=== PATIENT | male | born 1995 | race Caucasian/White ===

== ENCOUNTER 2019-04-19 09:18 | Emergency (ER) | payer OTHER ==
[~2019-04-19] VITALS: Ht 188 cm; Wt 91.0 kg
[2019-04-19] MEDS ORDERED: ONDANSETRON PF 4 MG/2 ML VIAL. ONE (09:37)
[2019-04-19] MEDS ORDERED: IV NORMAL SALINE 1,000ML 1,000 ML IV ONE (09:45)
[2019-04-19] MEDS ORDERED: ONDANSETRON PF 4 MG/2 ML VIAL. IVP ONE (09:45)
[2019-04-19] MEDS ORDERED: KETOROLAC 15 MG/ML VIAL. IVP ONE (10:00)
[2019-04-19] MEDS ORDERED: FAMOTIDINE 20 MG/2 ML VIAL IVP ONE (10:00)
[2019-04-19 10:02] LABS: BASO % 1 % (0-3); EOS # 0.1 x10^3/uL (0.0-0.7); EOS % 2 % (0-3); HEMATOCRIT 46.4 % (39.0-53.0); HEMOGLOBIN 16.2 g/dL (13.0-17.5); LYMPH # 1.8 x10^3/uL (1.0-4.8); LYMPH % 30 % (24-48); MEAN CORPUSCULAR HEMOGLOBIN 31 pg (25-35); MEAN CORPUSCULAR HGB CONC 35 g/dL (31-37); MEAN CORPUSCULAR VOLUME 88 fL (79-100); MONO # 0.6 x10^3/uL (0.0-1.1); MONO % 10 % (0-9); NEUT # 3.3 x10^3uL (1.8-7.7); NEUT % 57 % (31-73); PLATELET COUNT 172 x10^3/uL (140-400); RED BLOOD COUNT 5.24 x10^6/uL (4.30-5.70); RED CELL DISTRIBUTION WIDTH 12.7 % (11.5-14.5); WHITE BLOOD COUNT 5.9 x10^3/uL (4.0-11.0)
[2019-04-19 10:12] LABS: CALCIUM 9.6 mg/dL (8.5-10.1); CREATININE 1.5 mg/dL (0.7-1.3); GFR 57.5; POTASSIUM 3.6 mmol/L (3.5-5.1)
[2019-04-19 10:13] VITALS: BP 153/97
[2019-04-19 10:18] LABS: ALBUMIN 4.6 g/dL (3.4-5.0); ALBUMIN/GLOBULIN RATIO 1.4 (1.0-1.7); MAGNESIUM 1.9 mg/dL (1.8-2.4); TOTAL BILIRUBIN 0.5 mg/dL (0.2-1.0); TOTAL PROTEIN 7.8 g/dL (6.4-8.2)
--- NOTE | 2019-04-19 10:44 | RAD ---
PQRS Compliance Statement: One or more of the following individualized dose reduction techniques were utilized for this examination: 1. Automated exposure control 2. Adjustment of the mA and/or kV according to patient size 3. Use of iterative reconstruction technique CT abdomen/pelvis without contrast 04/19/2019 9:47 AM INDICATION: Left flank pain COMPARISON: None available TECHNIQUE: Multiple axial CT images of the abdomen and pelvis were obtained without intravenous contrast. Coronal and sagittal reformats are provided. FINDINGS: Visualized portions of the lung bases are clear. Heart size is within normal limits. Evaluation of the solid abdominal viscera is limited by lack of intravenous contrast. No suspicious hepatic masses are identified. Spleen, bilateral adrenal glands, and pancreas are normal in appearance. Gallbladder is present without adjacent inflammatory changes. The abdominal aorta is normal in course and caliber. There are no pathologically enlarged lymph nodes in the abdomen and pelvis. There is no abdominal free fluid. There is no free intraperitoneal air. Small and large bowel are normal in caliber. There is no evidence for bowel obstruction. There are no pericolonic inflammatory changes. A normal, nondilated appendix is visualized without adjacent inflammatory changes. There is a small fat-containing umbilical hernia measuring 1.6 cm. Urinary bladder is within normal limits given degree of distention. Prostate and seminal vesicles are normal. There is a 4 mm calculus at the left ureterovesicular junction resulting in mild left hydroureteronephrosis. Additional 1 mm nonobstructing calculus is identified in the interpolar left kidney. There is suggestion of a cystic lesion in the superior pole left kidney measuring 16 mm. There are at least 3 nonobstructing calculi in the right kidney measuring up to 5 mm in inferior pole the right kidney. No suspicious osseous abnormality is identified. IMPRESSION: 1. 4 mm calculus is identified in the left ureterovesicular junction resulting in mild left hydroureteronephrosis. 2. Additional bilateral nonobstructing calculi are identified measuring up to 5 mm in inferior pole the right kidney. 3. Presumed simple cyst in the superior pole of left kidney measuring 1.6 cm. This may be confirmed with renal ultrasound on nonemergent basis. 4. Small fat-containing umbilical hernia. Electronically signed by: Anna Kennedy MD (04/19/2019 10:41 AM) [id number]
[2019-04-19] MEDS ORDERED: TAMS0.4C97 PO (11:05)
[2019-04-19] MEDS ORDERED: ONDA4TAB12 PO (11:05)
[2019-04-19] MEDS ORDERED: HYDR-3165 PO (11:06)
--- NOTE | 2019-04-19 11:06 | PHYS DOC ---
Past History Past Medical History: No Pertinent History Additional Past Medical Histor: No family or personal history of Kidney stones. Past Surgical History: Other Additional Past Surgical Histo: bilateral ACL repairs Smoking: Non-smoker Alcohol Use: Rarely Drug Use: None Adult General Chief Complaint Chief Complaint: ABDOMINAL PAIN HPI HPI Patient is a 23 year old male who presents with abdominal pain of 1 day duration. Pain initially started at 8:30 a.m. Thursday morning after eating breakfast. Pain is described as sharp L flank pain that radiates into the back. Pain has been constant since onset. Severity 09/18. No personal or family history of kidney stones. Has never had pain like this before. No dysuria or changes in urine color or consistency. Review of Systems Review of Systems Constitutional: Uncomfortable. Well nourished. Eyes: Denies redness or eye pain HENT: Denies nasal congestion or sore throat Respiratory: Denies cough or shortness of breath Cardiovascular: Denies chest pain or palpitations GI: Abdominal pain present in L flank. Nausea present. : Denies dysuria or hematuria Musculoskeletal: Left sided back pain present. No general weakness. Integument: Denies rash or skin lesions Neurologic: Denies headache, focal weakness or sensory changes Complete systems were reviewed and found to be within normal limits, except as documented in this note. Family History Family History Denies family history of Kidney stones. Current Medications Current Medications Current Medications Medications (Trade) Dose Ordered Sig/Minesh Start Time Stop Time Status Last Admin Dose Admin Famotidine (Pepcid Vial) 20 mg 1X ONCE 04/19/19 10:00 04/19/19 10:01 DC 04/19/19 10:00 20 MG Ketorolac Tromethamine (Toradol 15mg Vial) 15 mg 1X ONCE 04/19/19 10:00 04/19/19 10:01 DC 04/19/19 09:48 15 MG Ondansetron HCl (Zofran) 4 mg 1X ONCE 04/19/19 09:45 04/19/19 09:57 DC 04/19/19 09:45 4 MG Sodium Chloride 1,000 ml @ 1,000 mls/hr 1X ONCE 04/19/19 09:45 04/19/19 10:44 DC 04/19/19 09:45 1,000 MLS/HR Allergies Allergies Allergies Coded Allergies Type Severity Reaction Last Updated Verified No Known Drug Allergies 04/19/19 No Physical Exam Physical Exam Constitutional: Well developed, well nourished, non-toxic appearance, acutely distressed HENT: Normocephalic, atraumatic, oropharynx moist Eyes: PERRL, conjunctiva normal, no discharge Neck: Normal range of motion, no tenderness, supple Cardiovascular: Heart rate normal, regular rhythm Lungs & Thorax: Bilateral breath sounds clear to auscultation, no wheezing Abdomen: Soft, Tender to palpation in L flank. LUQ pain. Skin: Warm, dry, no erythema, no rash Back: Radiation of pain on L side, no CVA tenderness Extremities: No tenderness, ROM intact, no edema Neurologic: Alert and oriented X 3, normal motor function, normal sensory function, no focal deficits noted Psychologic: Affect normal, judgment normal Current Patient Data Vital Signs Vital Signs Date Time Temp Pulse Resp B/P (MAP) Pulse Ox O2 Delivery O2 Flow Rate FiO2 04/19/19 10:13 97.7 85 18 153/97 (115) 99 Room Air Lab Results Laboratory Tests Test 04/19/19 09:45 White Blood Count 5.9 x10^3/uL (4.0-11.0) Red Blood Count 5.24 x10^6/uL (4.30-5.70) Hemoglobin 16.2 g/dL (13.0-17.5) Hematocrit 46.4 % (39.0-53.0) Mean Corpuscular Volume 88 fL (79-100) Mean Corpuscular Hemoglobin 31 pg (25-35) Mean Corpuscular Hemoglobin Concent 35 g/dL (31-37) Red Cell Distribution Width 12.7 % (11.5-14.5) Platelet Count 172 x10^3/uL (140-400) Neutrophils (%) (Auto) 57 % (31-73) Lymphocytes (%) (Auto) 30 % (24-48) Monocytes (%) (Auto) 10 % (0-9) H Eosinophils (%) (Auto) 2 % (0-3) Basophils (%) (Auto) 1 % (0-3) Neutrophils # (Auto) 3.3 x10^3uL (1.8-7.7) Lymphocytes # (Auto) 1.8 x10^3/uL (1.0-4.8) Monocytes # (Auto) 0.6 x10^3/uL (0.0-1.1) Eosinophils # (Auto) 0.1 x10^3/uL (0.0-0.7) Basophils # (Auto) 0.0 x10^3/uL (0.0-0.2) Sodium Level 142 mmol/L (136-145) Potassium Level 3.6 mmol/L (3.5-5.1) Chloride Level 103 mmol/L (98-107) Carbon Dioxide Level 24 mmol/L (21-32) Anion Gap 15 (6-14) H Blood Urea Nitrogen 16 mg/dL (8-26) Creatinine 1.5 mg/dL (0.7-1.3) H Estimated GFR (Cockcroft-Gault) 57.5 BUN/Creatinine Ratio 11 (6-20) Glucose Level 140 mg/dL (70-99) H Calcium Level 9.6 mg/dL (8.5-10.1) Magnesium Level 1.9 mg/dL (1.8-2.4) Total Bilirubin 0.5 mg/dL (0.2-1.0) Aspartate Amino Transferase (AST) 12 U/L (15-37) L Alanine Aminotransferase (ALT) 29 U/L (16-63) Alkaline Phosphatase 56 U/L (46-116) Total Protein 7.8 g/dL (6.4-8.2) Albumin 4.6 g/dL (3.4-5.0) Albumin/Globulin Ratio 1.4 (1.0-1.7) Lipase 63 U/L (73-393) L EKG EKG [] Radiology/Procedures Radiology/Procedures PROCEDURE: CT ABDOMEN PELVIS WO CONTRAST PQRS Compliance Statement: One or more of the following individualized dose reduction techniques were utilized for this examination: 1. Automated exposure control 2. Adjustment of the mA and/or kV according to patient size 3. Use of iterative reconstruction technique CT abdomen/pelvis without contrast 04/19/2019 9:47 AM INDICATION: Left flank pain COMPARISON: None available TECHNIQUE: Multiple axial CT images of the abdomen and pelvis were obtained without intravenous contrast. Coronal and sagittal reformats are provided. FINDINGS: Visualized portions of the lung bases are clear. Heart size is within normal limits. Evaluation of the solid abdominal viscera is limited by lack of intravenous contrast. No suspicious hepatic masses are identified. Spleen, bilateral adrenal glands, and pancreas are normal in appearance. Gallbladder is present without adjacent inflammatory changes. The abdominal aorta is normal in course and caliber. There are no pathologically enlarged lymph nodes in the abdomen and pelvis. There is no abdominal free fluid. There is no free intraperitoneal air. Small and large bowel are normal in caliber. There is no evidence for bowel obstruction. There are no pericolonic inflammatory changes. A normal, nondilated appendix is visualized without adjacent inflammatory changes. There is a small fat-containing umbilical hernia measuring 1.6 cm. Urinary bladder is within normal limits given degree of distention. Prostate and seminal vesicles are normal. There is a 4 mm calculus at the left ureterovesicular junction resulting in mild left hydroureteronephrosis. Additional 1 mm nonobstructing calculus is identified in the interpolar left kidney. There is suggestion of a cystic lesion in the superior pole left kidney measuring 16 mm. There are at least 3 nonobstructing calculi in the right kidney measuring up to 5 mm in inferior pole the right kidney. No suspicious osseous abnormality is identified. IMPRESSION: 1. 4 mm calculus is identified in the left ureterovesicular junction resulting in mild left hydroureteronephrosis. 2. Additional bilateral nonobstructing calculi are identified measuring up to 5 mm in inferior pole the right kidney. 3. Presumed simple cyst in the superior pole of left kidney measuring 1.6 cm. This may be confirmed with renal ultrasound on nonemergent basis. 4. Small fat-containing umbilical hernia. Electronically signed by: Anna Kennedy MD (04/19/2019 10:41 AM) [id number] Course & Med Decision Making Course & Med Decision Making Pertinent Labs and Imaging studies reviewed. (See chart for details) Patient presents with sudden flank pain concerning for obstructing ureteral calculi. Pain/nausea addressed. IVF hydration given. CT imaging confirmed 4mm UVJ stone. Flomax provided. Patient stable for discharge home with outpatient follow-up with PCP/Urologist. Discussed findings and plan with patient, who acknowledges understanding and agreement. Dragon Disclaimer Dragon Disclaimer This electronic medical record was generated, in whole or in part, using a voice recognition dictation system. Departure Departure: Impression: Primary Impression: Ureteral calculi Disposition: HOME, SELF-CARE Condition: STABLE Referrals: PCPWILLEM (PCP) Patient Instructions: Diet for Kidney Stones, Kidney Stones, [id number] Scripts Hydrocodone Bit/Acetaminophen (NORCO 5-325 TABLET) 1 Each Tablet 0.5-1 TAB PO Q6HRS PRN for PAIN, #10 TAB Prov: MER VAZQUEZ DO 04/19/19 Ondansetron (ONDANSETRON ODT) 4 Mg Tab.rapdis 1 TAB PO PRN Q6-8HRS PRN for NAUSEA, #16 TAB Prov: MER VAZQUEZ DO 04/19/19 Tamsulosin Hcl (FLOMAX) 0.4 Mg Cap.er.24h 1 CAP PO DAILY for kidney stone for 5 Days, #5 CAP Prov: MER VAZQUEZ DO 04/19/19 MER VAZQUEZ DO Apr 19, 2019 11:06
[2019-04-19] MEDS ORDERED: TAMSULOSIN 0.4 MG CAP.ER.24H. PO ONE (11:15)
[2019-04-19 11:31] LABS: BILIRUBIN,URINE NEG (NEG); CLARITY,URINE HAZY; COLOR,URINE YELLOW; GLUCOSE,URINE NEG (NEG)
[2019-04-19 11:32] LABS: BACTERIA,URINE 0 /HPF (0-FEW); NITRITE,URINE NEG (NEG); SQUAMOUS EPITHELIAL CELL,UR OCC /LPF; UROBILINOGEN,URINE 0.2 mg/dL (0.2 mg/dL); WBC,URINE OCC /HPF (0-4)
== END 2019-04-19 11:14 | disposition home or self-care (01) ==
LOC: ER 09:18
DX: N13.2 Hydronephrosis with renal and ureteral calculous obstruction (principal)
CPT/HCPCS: 36415; 74176; 80053; 81001; 83690; 83735; 85025; 96374; 96375; 99284; J1885; J2405; J3490; J7030